=== PATIENT | female | born 1970 | race Caucasian/White ===

== ENCOUNTER 2016-08-26 12:31 | Emergency (ER) | payer BC ==
[~2016-08-26] VITALS: Ht 163.8 cm; Wt 93.9 kg
[~2016-08-26 12:31] MED LIST: ASPI81TA9 PO; FAMO-63 PO; IBUP200T58 PO; LANS30CA17 PO; MELO-150 PO; OXYC-323 PO; PRED20TA PO; PROAIR HFA8.5 GM IH; SIMV40TA3 PO; SULF1TAB24 PO
[2016-08-26 13:03] VITALS: BP 138/83
--- NOTE | 2016-08-26 14:13 | RAD ---
PA and lateral chest radiographs 08/26/2016 Clinical history: Cough for one week with chest heaviness. PA and lateral digital radiographs of the chest were obtained. Comparison study is dated 12/19/2015. The cardiac silhouette is normal in size. The thoracic aorta is mildly tortuous. No acute pulmonary infiltrate is seen. No pleural effusion or pneumothorax is noted. Degenerative changes are seen involving the thoracic spine. Impression: No acute abnormality is seen.
[2016-08-26] MEDS ORDERED: PREDNISONE 20 MG TABLET PO ONE (14:15)
[2016-08-26] MEDS ORDERED: PREDNISONE 20 MG TABLET ONE (14:18)
[2016-08-26] MEDS ORDERED: IPRATRPIUM/ALBUTEROL 0.5/2.5MG 3 ML NEBU. NEB ONE (15:00)
[2016-08-26] MEDS ORDERED: PRED50TA PO (15:40)
[2016-08-26] MEDS ORDERED: PROAIR RESPICL90 MCG IH (15:40)
--- NOTE | 2016-08-26 15:41 | PHYS DOC ---
Past Medical History Past Medical History: Asthma, High Cholesterol Past Surgical History: Hysterectomy, Tonsillectomy, Other Additional Past Surgical Histo: adnoid, abscess, ankle, eye, CARPAL TUNNEL, neck./brain surgery Alcohol Use: None Drug Use: None Adult General Chief Complaint Chief Complaint: SHORTNESS OF BREATH HPI HPI Patient is a 46 year old female with history of asthma, smoking, and high cholesterol who presents with a productive cough with yellow sputum and shortness of breath due to asthma that began today. Patient states she tried using her inhaler and she felt is not working. Patient denies any fever. Review of Systems Review of Systems Constitutional: Denies fever or chills [] Eyes: Denies change in visual acuity, redness, or eye pain [] HENT: Denies nasal congestion or sore throat [] Respiratory: Cough and shortness of breath Cardiovascular: No additional information not addressed in HPI [] GI: Denies abdominal pain, nausea, vomiting, bloody stools or diarrhea [] : Denies dysuria or hematuria [] Musculoskeletal: Denies back pain or joint pain [] Integument: Denies rash or skin lesions [] Neurologic: Denies headache, focal weakness or sensory changes [] Endocrine: Denies polyuria or polydipsia [] Current Medications Current Medications Current Medications Medications (Trade) Dose Ordered Sig/Tao Start Time Stop Time Status Last Admin Dose Admin Albuterol/ Ipratropium (Duoneb) 3 ml 1X ONCE 08/26/16 15:00 08/26/16 15:01 DC 08/26/16 14:49 3 ML Prednisone (Prednisone) 20 mg STK-MED ONCE 08/26/16 14:18 08/26/16 14:19 DC Allergies Allergies Allergies Coded Allergies Type Severity Reaction Last Updated Verified No Known Drug Allergies 08/26/16 No Physical Exam Physical Exam Constitutional: Well developed, well nourished, no acute distress, non-toxic appearance. [] HENT: Normocephalic, atraumatic, bilateral external ears normal, oropharynx moist, no oral exudates, nose normal. [] Eyes: PERRLA, EOMI, conjunctiva normal, no discharge. [] Neck: Normal range of motion, no tenderness, supple, no stridor. [] Cardiovascular:Heart rate regular rhythm, no murmur [] Lungs & Thorax: Bilateral breath sounds clear to auscultation [] Abdomen: Bowel sounds normal, soft, no tenderness, no masses, no pulsatile masses. [] Skin: Warm, dry, no erythema, no rash. [] Back: No tenderness, no CVA tenderness. [] Extremities: No tenderness, no cyanosis, no clubbing, ROM intact, no edema. [] Neurologic: Alert and oriented X 3, normal motor function, normal sensory function, no focal deficits noted. [] Psychologic: Affect normal, judgement normal, mood normal. [] Current Patient Data Vital Signs Vital Signs Date Time Temp Pulse Resp B/P Pulse Ox O2 Delivery O2 Flow Rate FiO2 08/26/16 14:52 95 Room Air 08/26/16 13:03 98.1 87 20 98.1 EKG EKG [] Radiology/Procedures Radiology/Procedures [] Course & Med Decision Making Course & Med Decision Making Pertinent Labs and Imaging studies reviewed. (See chart for details) Patient is in the ED complaining of shortness of breath and cough due to for asthma. O2 sats are 96% on room air with heart rate in the 80s. She was given a DuoNeb treatment in the ED is started on prednisone. She stated she is feeling better and her breathing is back to baseline. Discharged with prednisone and albuterol inhaler. Encouraged to consider smoking cessation. Follow-up with her own PCP in the next 7 days. Dragon Disclaimer Dragon Disclaimer This electronic medical record was generated, in whole or in part, using a voice recognition dictation system. Departure Departure Impression: Primary Impression: Asthma exacerbation Additional Impressions: Smoking addiction Cough Disposition: 01 HOME, SELF-CARE Condition: STABLE Referrals: SUAD FERNANDES MD (PCP) Follow-up with the doctor in one week Patient Instructions: Asthma, Adult Additional Instructions: You were seen for asthma exacerbation. Take the prescribed medicines as ordered. Follow-up with doctor in the next 7 days. Come back to the ED if symptoms worsen. Scripts Prednisone 50 Mg Tablet1 Tab PO DAILY #5 TAB Prov:LARISSA PRICE BEAD TRIMMER 08/26/16 Albuterol Sulfate (Proair Respiclick)90 Mcg Aer.pow.ba1 Puff IH PRN Q6HRS PRN SHORTNESS OF BREATH #1 INHALER Prov:LARISSA PRICE BEAD TRIMMER 08/26/16 Problem Qualifiers MUTJOSEALARISSA BEAD TRIMMER Aug 26, 2016 15:41
== END 2016-08-26 15:48 | disposition home or self-care (01) ==
LOC: ER 12:34
DX: J45.901 Unspecified asthma with (acute) exacerbation (principal); F17.200 Nicotine dependence, unspecified, uncomplicated; E78.00 Pure hypercholesterolemia, unspecified; Z90.710 Acquired absence of both cervix and uterus
CPT/HCPCS: 71020; 94250; 94640; 94760; 99284; J7512; J7620

== ENCOUNTER 2016-09-03 12:32 | Emergency (ER) | payer BC ==
[~2016-09-03] VITALS: Ht 162.6 cm; Wt 93.9 kg
[~2016-09-03 12:32] MED LIST changes: +PRED50TA PO; +PROAIR RESPICL90 MCG IH
--- NOTE | 2016-09-03 12:42 | PHYS DOC ---
Past Medical History Past Medical History: Asthma, High Cholesterol Past Surgical History: Hysterectomy, Tonsillectomy, Other Additional Past Surgical Histo: adnoid, abscess, ankle, eye, CARPAL TUNNEL, neck/brain surgery Alcohol Use: None Drug Use: None Adult General Chief Complaint Chief Complaint: SHORTNESS OF BREATH HPI HPI Patient is a 46 year old female with history of asthma who presents by EMS for continued cough and difficulty breathing. States she also has recent dizziness that is intermittent, worse when she stands or moves. States her symptoms are persistent since evaluation on 08/26/16 here. She took the prednisone burst at that time. She notes feeling tightness in her chest that is exactly like prior asthma symptoms. She gets intermittent, but not complete relief with home albuterol inhaler. She denies sputum production, fever or chills, nausea or vomiting, palpitations, diaphoresis, hemoptysis, leg pain or swelling, orthopnea , headache, vision changes, numbness, tingling, weakness. Had DuoNeb via EMS with significant improvement in her symptoms. Has appointment with her primary care doctor tomorrow. Review of Systems Review of Systems Constitutional: Denies fever or chills [] Eyes: Denies change in visual acuity, redness, or eye pain [] HENT: Denies nasal congestion or sore throat [] Respiratory: Has cough and shortness of breath [] Cardiovascular: No additional information not addressed in HPI [] GI: Denies abdominal pain, nausea, vomiting, bloody stools or diarrhea [] : Denies dysuria or hematuria [] Musculoskeletal: Denies back pain or joint pain [] Integument: Denies rash or skin lesions [] Neurologic: Denies headache, focal weakness or sensory changes [] Endocrine: Denies polyuria or polydipsia [] Current Medications Current Medications Current Medications Medications (Trade) Dose Ordered Sig/Tao Start Time Stop Time Status Last Admin Dose Admin Albuterol/ Ipratropium (Duoneb) 3 ml 1X ONCE 09/03/16 12:45 09/03/16 12:46 DC 09/03/16 13:02 3 ML Meclizine HCl (Antivert) 25 mg 1X ONCE 09/03/16 12:45 09/03/16 12:46 DC 09/03/16 13:47 25 MG Allergies Allergies Allergies Coded Allergies Type Severity Reaction Last Updated Verified No Known Drug Allergies 08/26/16 No Physical Exam Physical Exam Constitutional: Well developed, well nourished, no acute distress, non-toxic appearance. [] HENT: Normocephalic, atraumatic, bilateral external ears normal, oropharynx moist, nose normal. [] Eyes: PERRLA, EOMI. [] Neck: Normal range of motion, supple. [] Cardiovascular:Heart rate regular rhythm [] Lungs & Thorax: Minimal bilateral wheezing, normal respiratory effort, no cough during examination home no crackles [] Abdomen: Bowel sounds normal, soft, no tenderness. [] Skin: Warm, dry, no erythema, no rash. [] Back: No tenderness, no CVA tenderness. [] Extremities: No tenderness, ROM intact. [] Neurologic: Alert and oriented X 3, normal motor function, normal sensory function, no focal deficits noted, cranial nerves II through XII intact, no nystagmus. [] Psychologic: Affect normal, judgement normal, mood normal. [] Current Patient Data Vital Signs Vital Signs Date Time Temp Pulse Resp B/P Pulse Ox O2 Delivery O2 Flow Rate FiO2 09/03/16 13:31 92 16 125/62 94 Room Air 09/03/16 12:34 100.0 100.0 Course & Med Decision Making Course & Med Decision Making Pertinent Labs and Imaging studies reviewed. (See chart for details) She is feeling better after medications and would like to go home. Lungs CTAB. Will place on prednisone taper for persistent symptoms. She has appointment tomorrow with PCP. Return precautions given. She understands and agrees with plan. Dragon Disclaimer Dragon Disclaimer This electronic medical record was generated, in whole or in part, using a voice recognition dictation system. Departure Departure Impression: Primary Impression: Asthma exacerbation Additional Impression: Dizziness Disposition: HOME, SELF-CARE Condition: STABLE Referrals: SUAD FERNANDES MD (PCP) Patient Instructions: Asthma, Adult, [id number] Additional Instructions: Take prednisone as prescribed. Use albuterol inhaler as needed for difficulty breathing or coughing. You can also use honey as needed for cough. Follow-up with your primary care doctor. Return for any concerns. Scripts Prednisone 10 Mg [id number] Mg PO DAILY #30 TAB Take 50 mg (5 pills) daily for 2 days, then take 40 mg (4 pills) daily for 2 days, then take 30 mg (3 pills) daily for 2 days, then take 20 mg (2 pills) daily for 2 days, then take 10 mg for 2 days. Prov:Rosario HURT MD 09/03/16 Problem Qualifiers Rosario HURT MD Sep 03, 2016 12:42
[2016-09-03] MEDS ORDERED: IPRATRPIUM/ALBUTEROL 0.5/2.5MG 3 ML NEBU. NEB ONE (12:45)
[2016-09-03] MEDS ORDERED: MECLIZINE HCL 12.5 MG TABLET. PO ONE (12:45)
[2016-09-03 13:31] VITALS: BP 125/62
[2016-09-03] MEDS ORDERED: PRED-220 PO (13:45)
== END 2016-09-03 14:39 | disposition home or self-care (01) ==
LOC: ER 12:32
DX: J45.901 Unspecified asthma with (acute) exacerbation (principal); R42 Dizziness and giddiness; E78.00 Pure hypercholesterolemia, unspecified
CPT/HCPCS: 94250; 94640; 99283; J7620; J8597

== ENCOUNTER 2018-06-03 13:18 | Emergency (ER) | payer SELFPAY ==
[~2018-06-03] VITALS: Ht 162.6 cm; Wt 105.7 kg
[~2018-06-03 13:18] MED LIST changes: +ALBU2.5V8 IH; +ASPI-612 PO; -ASPI81TA9 PO; -LANS30CA17 PO; +LANS30CA66 PO; -MELO-150 PO; +MELO15TA23 PO; -OXYC-323 PO; +OXYC1TAB15 PO; +PRED-220 PO; -PROAIR HFA8.5 GM IH
[2018-06-03 14:00] VITALS: BP 141/81
--- NOTE | 2018-06-03 15:02 | RAD ---
Examination: 3 views of the right ankle HISTORY: History of fall, pain COMPARISON: None available. FINDINGS: There is lucency identified in the distal aspect of the lateral malleolus, age indeterminate fracture. There is moderate soft tissue swelling identified lateral to lateral malleolus. Ankle mortise appears intact. Moderate degenerative changes identified in the ankle joint. Small inferior calcaneal enthesophyte identified. IMPRESSION: 1. Lucency identified in the distal aspect of the lateral malleolus, age indeterminate fracture probably acute given the soft tissue swelling about the lateral malleolus. Recommend CT for further evaluation. 2. Moderate soft tissue swelling lateral to lateral malleolus. Electronically signed by: Naveen Carolina MD (06/03/2018 2:58 PM) [id number]
--- NOTE | 2018-06-03 15:34 | PHYS DOC ---
Past Medical History Past Medical History: Asthma, High Cholesterol Past Surgical History: Hysterectomy, Tonsillectomy, Other Additional Past Surgical Histo: adnoid, abscess, ankle, eye, CARPAL TUNNEL, neck/brain surgery Alcohol Use: None Drug Use: None Adult General Chief Complaint Chief Complaint: ANKLE PROBLEM HPI HPI Patient is a 47 year old female who presents with pain, bruising and swelling to her right ankle after she fell yesterday. She states that there is a working up at her house because her boyfriend has a fractured ankle. She states that she is not able to go down the ramp so she went to the grass and slipped and fell. The patient has other multiple complaints. She states that she was diagnosed with a Chiari malformation and was requesting an MRI. I explained that we cannot do those in the emergency department but that is rather an outpatient test. She states that she's tried to get it done outpatient but she now no longer has insurance due to the fact that she hasn't worked since May. She states that she is trying to get on disability. She states that she has no money for follow-up care and has no way to see any other providers. She states that she called her primary care who told her to come to the emergency department to have those tests done. I did apologize for the misunderstanding but explained that an MRI is not an emergent procedure to follow-up on a chronic condition. She states that she has been seen by neurosurgery and a neurologist and feels that they have not done anything for her. I did offer to give her clinic resources for free and reduced care. The patient has been intermittently tearful. Review of Systems Review of Systems Constitutional: Denies fever or chills [] Eyes: Denies change in visual acuity, redness, or eye pain [] HENT: Denies nasal congestion or sore throat [] Respiratory: Denies cough or shortness of breath [] Cardiovascular: No additional information not addressed in HPI [] GI: Denies abdominal pain, nausea, vomiting, bloody stools or diarrhea [] : Denies dysuria or hematuria [] Musculoskeletal: See history of present illness Integument: Denies rash or skin lesions [] Neurologic: Denies headache, focal weakness or sensory changes [] Endocrine: Denies polyuria or polydipsia [] All other systems were reviewed and found to be within normal limits, except as documented in this note. Allergies Allergies Allergies Coded Allergies Type Severity Reaction Last Updated Verified No Known Drug Allergies 08/26/16 No Physical Exam Physical Exam Constitutional: Well developed, well nourished, no acute distress, non-toxic appearance. [] Cardiovascular:Heart rate regular rhythm, no murmur [] Lungs & Thorax: Bilateral breath sounds clear to auscultation [] Abdomen: Bowel sounds normal, soft, no tenderness, no masses, no pulsatile masses. [] Skin: Warm, dry, no erythema, no rash. [] Back: No tenderness, no CVA tenderness. [] Extremities: tenderness, ecchymosis and edema to right ankle, no cyanosis, no clubbing, ROM decreased due to pain and swelling Neurologic: Alert and oriented X 3, normal motor function, normal sensory function, no focal deficits noted. [] Psychologic: Affect normal, judgement normal, mood anxious and defensive. [] Current Patient Data Vital Signs Vital Signs Date Time Temp Pulse Resp B/P (MAP) Pulse Ox O2 Delivery O2 Flow Rate FiO2 06/03/18 14:00 98.4 100 18 141/81 (101) 98 Room Air 98.4 EKG EKG [] Radiology/Procedures Radiology/Procedures []PATIENT: HUEY HOLGUIN RACCOUNT: [id number]#: [id number] : 1970 LOCATION: ER AGE: 47 SEX: F EXAM STATUS: REG ER ORD. PHYSICIAN: HEMANT HAIR APRN REASON: fell yesterday, swelling and ecchymosis PROCEDURE: ANKLE RIGHT 3V Examination: 3 views of the right ankle HISTORY: History of fall, pain COMPARISON: None available. FINDINGS: There is lucency identified in the distal aspect of the lateral malleolus, age indeterminate fracture. There is moderate soft tissue swelling identified lateral to lateral malleolus. Ankle mortise appears intact. Moderate degenerative changes identified in the ankle joint. Small inferior calcaneal enthesophyte identified. IMPRESSION: 1. Lucency identified in the distal aspect of the lateral malleolus, age indeterminate fracture probably acute given the soft tissue swelling about the lateral malleolus. Recommend CT for further evaluation. 2. Moderate soft tissue swelling lateral to lateral malleolus. Electronically signed by: Naveen Carolina MD (06/03/2018 2:58 PM) [id number] DICTATED and SIGNED BY: NAVEEN CAROLINA MD DATE: 06/03/18 2753 Course & Med Decision Making Course & Med Decision Making Pertinent Labs and Imaging studies reviewed. (See chart for details) The patient was placed in a posterior short leg splint. Upon going over her test results the patient states that she needs follow-up care and has no money to be seen. She then began crying again. I explained that we could give her a clinic list and she states that even [facility] needs money to be seen. She states that she does not have any money. She then stated that this is why she thinks about killing herself. I then stopped the discussion and let her know that if she was truly suicidal we needed to escalate her visit to include that. She states that she has not had danger to herself or anyone else. She states that she has no plans on killing herself. She states that she is extremely depressed and feels like no one listens to her. I encouraged her to stay here until our psychiatric assessment team could come and talk to her and give her resources. Cass, with the psychiatric assessment team, came to speak with the patient. She screened her for potential inpatient treatment at [facility]. The patient refused inpatient treatment. The patient was given resources for treatment for her depression. The patient was discharged home with pain medication. She is to follow-up with orthopedics. Staff Physician Addendum: I was working in the ER during the course of this patient's visit. I was available for consultation as needed, but I was not directly involved in the care of this patient. Dragon Disclaimer Dragon Disclaimer This electronic medical record was generated, in whole or in part, using a voice recognition dictation system. Departure Departure Impression: Primary Impression: Ankle fracture Additional Impression: Depression Disposition: 01 HOME, SELF-CARE Condition: STABLE Referrals: SUAD FERNANDES MD (PCP) Patient Instructions: Ankle Fracture Additional Instructions: Take the medication as directed. Do not drive or operate heavy machinery while taking this medication. Follow-up with your primary care provider or orthopedics. Follow-up with the resources that you were given by Cass, with the psychiatric assessment team. If worsening return to the emergency department. Scripts Hydrocodone/Apap 5-325 (NORCO 5-325 TABLET) 1 Each Tablet 1 TAB PO PRN Q6HRS PRN for PAIN, #10 TAB 0 Refills Prov: HEMANT HAIR APRN 06/03/18 Problem Qualifiers HEMANT HAIR APRN Jun 03, 2018 15:34 YESSICA TEJADA MD Jun 04, 2018 12:58
[2018-06-03] MEDS ORDERED: HYDR-3164 PO (16:54)
== END 2018-06-03 17:16 | disposition home or self-care (01) ==
LOC: ER 13:18
DX: S82.61XA Displaced fracture of lateral malleolus of right fibula, initial encounter for closed fracture (principal); F32.9 Major depressive disorder, single episode, unspecified; E78.00 Pure hypercholesterolemia, unspecified; J45.909 Unspecified asthma, uncomplicated; W18.39XA Other fall on same level, initial encounter; Y93.89 Activity, other specified; Y92.89 Other specified places as the place of occurrence of the external cause; Y99.8 Other external cause status
CPT/HCPCS: 29515; 73610; 99284-25

== ENCOUNTER 2019-01-25 19:50 | Emergency (ER) | payer SELFPAY ==
[~2019-01-25] VITALS: Ht 162.6 cm; Wt 113.4 kg
[~2019-01-25 19:50] MED LIST changes: +HYDR-3164 PO
[2019-01-25 20:26] VITALS: BP 181/102
[2019-01-25] MEDS ORDERED: DIPHTH,PERTUSS(ACELL),TET TOX 0.5 ML DISP.SYRIN. VAX IM ONE (21:00)
[2019-01-25 21:59] LABS: BASO # 0.1 x10^3/uL (0.0-0.2); BASO % 1 % (0-3); EOS # 0.1 x10^3/uL (0.0-0.7); EOS % 1 % (0-3); HEMOGLOBIN 14.7 g/dL (12.0-15.5); LYMPH # 3.9 x10^3/uL (1.0-4.8); LYMPH % 39 % (24-48); MEAN CORPUSCULAR HEMOGLOBIN 32 pg (25-35); MEAN CORPUSCULAR HGB CONC 34 g/dL (31-37); MEAN CORPUSCULAR VOLUME 92 fL (79-100); MONO # 0.7 x10^3/uL (0.0-1.1); MONO % 7 % (0-9); NEUT # 5.2 x10^3/uL (1.8-7.7); NEUT % 52 % (31-73); PLATELET COUNT 276 x10^3/uL (140-400); RED BLOOD COUNT 4.65 x10^6/uL (3.50-5.40); RED CELL DISTRIBUTION WIDTH 13.6 % (11.5-14.5)
[2019-01-25 22:10] LABS: CALCIUM 9.7 mg/dL (8.5-10.1); CREATININE 0.8 mg/dL (0.6-1.0); GFR 76.2; POTASSIUM 3.7 mmol/L (3.5-5.1)
[2019-01-25 22:16] LABS: ALBUMIN 4.1 g/dL (3.4-5.0); ALBUMIN/GLOBULIN RATIO 1.1 (1.0-1.7); TOTAL BILIRUBIN 0.4 mg/dL (0.2-1.0)
[2019-01-25] MEDS ORDERED: NEOMY/BACITR/POLYMYXIN OINT PACKET. TP ONE (23:15)
[2019-01-25] MEDS ORDERED: MUPI22OI2 TP (23:18)
[2019-01-25] MEDS ORDERED: SULF1TAB24 PO (23:18)
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
--- NOTE | 2019-01-25 23:27 | RAD ---
Three-view left hand radiographs 01/25/2019 CLINICAL HISTORY: Fall with injury to the left hand. AP, lateral and oblique digital radiographs of the left hand were obtained. Soft tissue swelling is seen involving the left fourth and fifth fingers. No fracture or dislocation of the left hand is seen. Mild degenerative changes are seen throughout the interphalangeal and MCP joints of the left hand. IMPRESSION: No fracture or dislocation of the left hand is seen. Electronically signed by: John Boothe MD (01/25/2019 11:23 PM) [facility]
== END 2019-01-26 00:38 | disposition home or self-care (01) ==
LOC: ER 19:50
DX: S61.205A Unspecified open wound of left ring finger without damage to nail, initial encounter (principal); S61.207A Unspecified open wound of left little finger without damage to nail, initial encounter; L03.012 Cellulitis of left finger; Z23 Encounter for immunization; J45.909 Unspecified asthma, uncomplicated; E78.00 Pure hypercholesterolemia, unspecified; W49.04XA Ring or other jewelry causing external constriction, initial encounter; Y93.89 Activity, other specified; Y92.89 Other specified places as the place of occurrence of the external cause; Y99.8 Other external cause status
CPT/HCPCS: 36415; 73130; 80053; 85025; 90471; 90715; 99285